=== PATIENT | male | born 1995 | race African-American/Black ===

== ENCOUNTER 2021-01-10 11:56 | Emergency (ER) | payer OTHER ==
[~2021-01-10] VITALS: Ht 185.4 cm; Wt 108.0 kg
[2021-01-10 11:57] VITALS: BP 123/77
[2021-01-10] MEDS ORDERED: DOXYCYCLINE HYCLATE 100MG TABLET PO ONE (12:25)
[2021-01-10] MEDS ORDERED: LIDOCAINE 1% SDV 5ML VIAL DILUENT ONE (12:25)
[2021-01-10] MEDS ORDERED: cefTRIAXone 500MG VIAL (J0696 PER 250MG) IM ONE (12:25)
[2021-01-10] MEDS ORDERED: DOXY100C37 PO (12:40)
[2021-01-10 14:05] LABS: CHLAMYDIA DNA AMPLIFICATION POSITIVE (NEGATIVE); GC DNA AMPLIFICATION NEGATIVE (NEGATIVE)
== END 2021-01-10 12:55 | disposition home or self-care (01) ==
LOC: M ED 11:56
DX: Z11.3 Encounter for screening for infections with a predominantly sexual mode of transmission (principal); R36.9 Urethral discharge, unspecified
CPT/HCPCS: 81001; 87086; 87661; 96372; 99282; J0696